=== PATIENT | male | born 1950 | race African-American/Black ===

== ENCOUNTER 2020-08-03 12:07 | Emergency (ER) | payer OTHER, MEDICARE ==
[~2020-08-03] VITALS: Ht 167.6 cm; Wt 73.0 kg
[2020-08-03] MEDS ORDERED: MECLIZINE 25MG TABLET PO ONE (12:45)
[2020-08-03] MEDS ORDERED: MECL-159 MT (12:51)
[2020-08-03 13:03] LABS: BASOPHILS % 0.5 % (0.0-2.0); EOSINOPHILS % 0.2 % (0.0-5.0); HEMATOCRIT. 48.7 % (42.0-52.0); HEMOGLOBIN. 15.8 g/dL (14.0-18.0); LYMPHOCYTES % 18.3 % (20.0-50.0); MEAN CORPUSCULAR HEMOGLOBIN 29.4 pg (28.0-32.0); MEAN CORPUSCULAR VOLUME 90.8 fL (80.0-94.0); MEAN PLATELET VOLUME 7.1 fl (7.4-10.4); MONOCYTES % 4.2 % (2.0-8.0); NEUTROPHILS % 76.8 % (40.0-76.0); PLATELET 298 x1000/uL (130-400); RED BLOOD CELL COUNT 5.36 mill/uL (4.7-6.1)
[2020-08-03 13:09] LABS: CHLORIDE 110 mEq/L (98-107)
[2020-08-03 13:14] LABS: ETHANOL BLOOD < 10 mg/dL
[2020-08-03 13:25] LABS: INR 0.9; PROTHROMBIN TIME 10.2 sec (9.6-11.0)
[2020-08-03 13:39] LABS: CLARITY URINE CLEAR (CLEAR); COLOR URINE YELLOW (YELLOW); KETONES URINE TRACE (NEGATIVE); LEUKOCYTE ESTERASE URINE NEGATIVE (NEGATIVE); NITRITE URINE NEGATIVE (NEGATIVE); OCCULT BLOOD URINE NEGATIVE (NEGATIVE); PROTEIN URINE NEGATIVE (NEGATIVE); SPECIFIC GRAVITY URINE 1.025 (1.005-1.030)
[2020-08-03 14:22] LABS: *AMPHETAMINES SCREEN URINE NEGATIVE (NEGATIVE); *BARBITURATES SCREEN URINE NEGATIVE (NEGATIVE); *BENZODIAZEPINES SCREEN URINE NEGATIVE (NEGATIVE); *COCAINE SCREEN URINE NEGATIVE (NEGATIVE)
[2020-08-03 14:23] LABS: METHADONE URINE SCREEN NEGATIVE (NEGATIVE)
[2020-08-03 14:24] LABS: CANNABINOID URINE SCREEN NEGATIVE (NEGATIVE); OPIATES URINE SCREEN NEGATIVE (NEGATIVE); PHENCYCLIDINE URINE SCREEN NEGATIVE (NEGATIVE)
[2020-08-03 15:09] VITALS: BP 122/78
== END 2020-08-03 15:17 | disposition home or self-care (01) ==
LOC: ER 12:07
DX: H81.10 Benign paroxysmal vertigo, unspecified ear (principal); Z86.19 Personal history of other infectious and parasitic diseases; Z90.49 Acquired absence of other specified parts of digestive tract
CPT/HCPCS: 36415; 70450; 80053; 80305; 80320; 81003; 84484; 85025; 85610; 93005; 99285; J8597; G0480